=== PATIENT | female | born 1965 | race Caucasian/White ===

== ENCOUNTER 2016-10-18 08:38 | Emergency (ER) | payer SELFPAY ==
[2016-10-18 08:47] VITALS: BP 106/56; PULSE 75; RESP 16; TEMP 97.6
[2016-10-18 08:49] VITALS: O2SAT 98
[2016-10-18] MEDS ORDERED: Lidocaine 1% Inj (20ml) IJ ONE (08:58)
[2016-10-18] MEDS ORDERED: Lidocaine 1% Inj (20ml) ONE (08:59)
[2016-10-18] MEDS ORDERED: Povidone Iodine Oint 10% Foilpak UD ONE (09:04)
--- NOTE | 2016-10-18 09:31 | ED PDOC ---
HPI: Wound Care - HPI Time Seen by Provider: 10/18/16 08:47 Chief Complaint (Nursing): Abnormal Skin Integrity Chief Complaint (Provider): Abnormal Skin Integrity History Per: Patient Exam Limitations: no limitations Onset/Duration Of Symptoms: Days (x3) Additional Complaint(s): Milla Paige is a 51 year old female presenting to the ED for an evaluation of pain and swelling to the perirectal area occurring for 3 days associated with a subjective fever. She denies bleeding or drainage. PMD: None Provided Past Medical History Reviewed: Historical Data, Nursing Documentation, Vital Signs Vital Signs: Last Vital Signs Temp 97.6 F 10/18/16 08:46 Pulse 75 10/18/16 08:46 Resp 16 10/18/16 08:46 BP 106/56 L 10/18/16 08:46 Pulse Ox 98 10/18/16 08:47 - Medical History PMH: No Chronic Diseases - Family History Family History: States: Unknown Family Hx - Social History Current smoker - smoking cessation education provided: No Ex-Smoker (has not smoked in the last 12 months): No Alcohol: None - Home Medications Home Medications: Ambulatory Orders Medication Instructions Recorded Naproxen [Naprosyn] 500 mg PO Q12H #20 tab 10/18/16 Sulfamethoxazole/Trimethoprim 1 tab PO BID #20 tab 10/18/16 [Bactrim DS 800 mg-160 mg] - Allergies Allergies/Adverse Reactions: Allergies Allergy/AdvReac Type Severity Reaction Status Date / Time No Known Allergies Allergy Verified 10/18/16 08:46 Review of Systems ROS Statement: Except As Marked, All Systems Reviewed And Found Negative Constitutional: Positive for: Fever (subjective) Gastrointestinal: Positive for: Rectal Pain (pain and swelling to perirectal area ). Negative for: Other (no bleeding or drainage ) Physical Exam - Reviewed Nursing Documentation Reviewed: Yes Vital Signs Reviewed: Yes - Physical Exam Appears: Positive for: Non-toxic, No Acute Distress Head Exam: Positive for: ATRAUMATIC, NORMOCEPHALIC Rectal: Positive for: Tenderness (perirectal swelling and fluctuance with tenderness). Negative for: Other (rectal exam: no fluctuance intra-rectally ) Neurologic/Psych: Positive for: Alert, Oriented - ECG O2 Sat by Pulse Oximetry: 98 (RA) Pulse Ox Interpretation: Normal Procedure: Wound Repair - Indications Indication(s):: Incision wound (incision and drainage approximately 4-5 ccs of material packed with gauze ) - Anesthetic Technique Local/Regional Anesthetic:: Lidocaine 1% (3 ccs) Medical Decision Making Medical Decision Making: Time: 08:47 Impression: Perirectal pain and swelling Plan: * Lidocaine 1% (20 ml) 3 ml IJ * Wound Culture and Gram Stain * See Procedure Note Instructed pt to return tomorrow for evaluation. Scribe Attestation: Documented by Stefany Gomez, acting as a scribe for Yony Garrett MD. Provider Scribe Attestation: All medical record entries made by the Scribe were at my direction and personally dictated by me. I have reviewed the chart and agree that the record accurately reflects my personal performance of the history, physical exam, medical decision making, and the department course for this patient. I have also personally directed, reviewed, and agree with the discharge instructions and disposition. Disposition - Clinical Impression Clinical Impression: Abscess - Disposition Referrals: [facility] [Outside] Disposition: Routine/Home Disposition Time: 09:40 Condition: FAIR Additional Instructions: Return tomorrow for packing removal Prescriptions: Naproxen [Naprosyn] 500 mg PO Q12H #20 tab Sulfamethoxazole/Trimethoprim [Bactrim DS 800 mg-160 mg] 1 tab PO BID #20 tab Instructions: Abscess (ED) Forms: [employer] (Mongolian) Print Language: ECUADOREAN
== END 2016-10-18 09:29 | disposition home or self-care (01) ==
LOC: H.ER 08:38
DX: K61.1 Rectal abscess (principal)

== ENCOUNTER 2016-10-19 12:33 | Emergency (ER) | payer SELFPAY ==
[2016-10-19 12:54] VITALS: BP 107/60; PULSE 63; RESP 18; TEMP 97; O2SAT 99
--- NOTE | 2016-10-19 13:10 | ED PDOC ---
HPI: Wound Care - HPI Time Seen by Provider: 10/19/16 13:06 Chief Complaint (Nursing): Wound Check Chief Complaint (Provider): Wound Check History Per: Patient Exam Limitations: no limitations Onset/Duration Of Symptoms: Days (x4) Current Symptoms Are (Timing): Gone Now Additional Complaint(s): Milla Paige is a 51 year old female that presents to the ED for a wound check. Patient was seen yesterday in ED for an abscess on her rectum, which was drained and packed. She was instructed to return to ED today for a follow up. She reports that she has been using the antibiotics she was prescribed, and denies any fever, chills, nausea, or vomiting, and states that the packing came out of the wound. Past Medical History Reviewed: Historical Data, Nursing Documentation, Vital Signs Vital Signs: Last Vital Signs Temp 97 F L 10/19/16 12:53 Pulse 63 10/19/16 12:53 Resp 18 10/19/16 12:53 BP 107/60 10/19/16 12:53 Pulse Ox 99 10/19/16 12:53 - Medical History PMH: No Chronic Diseases - Family History Family History: States: Unknown Family Hx - Home Medications Home Medications: Ambulatory Orders Medication Instructions Recorded Naproxen [Naprosyn] 500 mg PO Q12H #20 tab 10/18/16 Sulfamethoxazole/Trimethoprim 1 tab PO BID #20 tab 10/18/16 [Bactrim DS 800 mg-160 mg] - Allergies Allergies/Adverse Reactions: Allergies Allergy/AdvReac Type Severity Reaction Status Date / Time No Known Allergies Allergy Verified 10/18/16 08:46 Review of Systems Gastrointestinal: Positive for: Other (wound on rectum) Physical Exam - Reviewed Nursing Documentation Reviewed: Yes Vital Signs Reviewed: Yes - Physical Exam Appears: Positive for: Non-toxic, No Acute Distress Head Exam: Positive for: ATRAUMATIC, NORMOCEPHALIC Skin: Positive for: Normal Color, Warm Rectal: Positive for: Tenderness (mild), Other (Wound located on rectum at 11:00 , no erythema, packing not visible, no active bleeding.) Neurologic/Psych: Positive for: Alert, Oriented. Negative for: Motor/Sensory Deficits - ECG O2 Sat by Pulse Oximetry: 99 (RA) Pulse Ox Interpretation: Normal Medical Decision Making Medical Decision Making: Impression: Wound Check Plan: * Patient instructed to use stool softener and advised to wash rectum after using bathroom in order to keep fecal matter out of rectum. Additionally instructed to do sitz baths and to continue using antibiotics. Patient offers no complaints and is stable for discharge home. Scribe Attestation: Documented by Petrona Bunch, acting as a scribe for Sarah Phillips PA-C. Provider Scribe Attestation: All medical record entries made by the Scribe were at my direction and personally dictated by me. I have reviewed the chart and agree that the record accurately reflects my personal performance of the history, physical exam, medical decision making, and the department course for this patient. I have also personally directed, reviewed, and agree with the discharge instructions and disposition. Disposition - Clinical Impression Clinical Impression: Encounter for wound re-check - Patient ED Disposition Is Patient to be Admitted: No - Disposition Disposition: Routine/Home Disposition Time: 13:11 Condition: STABLE Additional Instructions: please use sitz baths and continue using your antibiotics. Instructions: Abscess (ED), Sitz Bath (GEN) Forms: [employer] (Faroese), [employer] (Croatian) Print Language: URDU
== END 2016-10-19 13:50 | disposition home or self-care (01) ==
LOC: H.ER 12:33
DX: Z48.00 Encounter for change or removal of nonsurgical wound dressing (principal)